=== PATIENT | female | born 1975 | race Caucasian/White ===

== ENCOUNTER 2022-07-11 08:14 | Outpatient (CLI) | payer OTHER, SELFPAY | END 2022-07-11 08:15 | disposition home or self-care (01) | LOC: NFLDREF 07-12 20:00 | PROVIDERS: PCP Physician Assistant Medical; Referring Provider Physician Assistant Medical; Visit Provider Physician Assistant Medical | DX: Z00.00 Encounter for general adult medical examination without abnormal findings (principal); E04.1 Nontoxic single thyroid nodule; Z13.0 Encounter for screening for diseases of the blood and blood-forming organs and certain disorders involving the immune mechanism; Z13.6 Encounter for screening for cardiovascular disorders; Z13.1 Encounter for screening for diabetes mellitus | CPT/HCPCS: 80053; 80061; 84443 ==

== ENCOUNTER 2022-07-14 14:48 | Outpatient (CLI) | payer OTHER, SELFPAY ==
--- NOTE | 2022-07-14 15:00 | CRLHL7_ITS ---
For Patients: As a result of the Century Cures Act, medical imaging exams and procedure reports are released immediately into your electronic medical record. You may view this report before your referring provider. If you have questions, please contact your health care provider. CLINICAL HISTORY: Bold AUB TECHNIQUE: Real time, toussaint scale images were acquired of the pelvis using a transabdominal and transvaginal approach. Color Doppler analysis was performed of the ovaries. FINDINGS: The uterus measures 9.3 x 5.9 x 5.8 centimeters. Endometrium measures 6 millimeters. Multiple fibroids are present. Largest fibroid is in the right fundal measuring 4.2 x 3.2 x 3.6 centimeters. Possible impingement on the endometrium. Right uterine fibroid measuring 2 x 0.9 x 1.8 centimeters. Left lower uterine body fibroid measuring 1.5 x 0.9 x 1.4 centimeters. Ovaries are unremarkable. Right ovary measures 3.4 x 1.6 x 1.6 centimeters. Left ovary measures 2.4 x 1.3 x 2.6 centimeters. Normal blood flow to both ovaries. IMPRESSION: 1. 6 millimeter endometrial stripe. 2. Multiple fibroids. Right fundal intramural fibroid measuring 4.2 x 3.2 x 3.6 centimeters possible impingement on the endometrium. Dictated by Lidia Brown MD @ 07/14/2022 3:59:15 PM (Electronically Signed)
== END 2022-07-14 14:49 | disposition home or self-care (01) ==
PROVIDERS: PCP Physician Assistant Medical; Visit Provider Physician Assistant Medical
DX: N92.6 Irregular menstruation, unspecified (principal); D25.1 Intramural leiomyoma of uterus
CPT/HCPCS: 76830; 76856

== ENCOUNTER 2023-07-10 09:47 | Outpatient (CLI) | payer OTHER, SELFPAY | END 2023-07-10 09:48 | disposition home or self-care (01) | PROVIDERS: PCP Physician Assistant Medical; Visit Provider Obstetrics & Gynecology | DX: N39.41 Urge incontinence (principal); N92.0 Excessive and frequent menstruation with regular cycle; R53.83 Other fatigue; Z79.899 Other long term (current) drug therapy | CPT/HCPCS: 82306; 84443; 87086 ==

== ENCOUNTER 2023-07-15 08:35 | Outpatient (CLI) | payer OTHER, SELFPAY | END 2023-07-15 08:36 | disposition home or self-care (01) | PROVIDERS: PCP Physician Assistant Medical; Visit Provider Physician Assistant Medical | DX: G43.909 Migraine, unspecified, not intractable, without status migrainosus (principal); Z13.220 Encounter for screening for lipoid disorders; M25.50 Pain in unspecified joint | CPT/HCPCS: 80053; 80061; 86039; 86140; 86200; 86431; 86618; 86812 ==

== ENCOUNTER 2023-09-02 07:57 | Outpatient (CLI) | payer OTHER, SELFPAY | END 2023-09-02 07:58 | disposition home or self-care (01) | LOC: NFLDREF 09-05 20:32 | PROVIDERS: PCP Physician Assistant Medical; Referring Provider Physician Assistant Medical; Visit Provider Physician Assistant Medical | DX: E78.5 Hyperlipidemia, unspecified (principal); F32.A Depression, unspecified | CPT/HCPCS: 80061; 82306 ==

== ENCOUNTER 2024-07-18 08:16 | Outpatient (CLI) | payer OTHER, SELFPAY ==
[2024-07-18 15:46] LABS: Chlamydia DNA Amplified* NOT DETECTED (No Detected); GC DNA Amplified* NOT DETECTED (No Detected)
[2024-07-19 23:57] LABS: HPV Source Cervix; HPV, High Risk by TMA Detected
[2024-07-20 13:19] LABS: HPV Genotype 16 by TMA Not Detected; HPV Genotype 18/45 by TMA Not Detected; HPVG Source Cervix
== END 2024-07-18 08:17 | disposition home or self-care (01) ==
PROVIDERS: PCP Physician Assistant Medical; Visit Provider Physician Assistant Medical
DX: E78.5 Hyperlipidemia, unspecified (principal); F41.9 Anxiety disorder, unspecified; F32.A Depression, unspecified; Z11.3 Encounter for screening for infections with a predominantly sexual mode of transmission; Z11.51 Encounter for screening for human papillomavirus (HPV); Z12.4 Encounter for screening for malignant neoplasm of cervix
CPT/HCPCS: 80053; 80061; 82306; 84443; 87491; 87591; 87624; 87625; 88141; 88142

== ENCOUNTER 2024-08-08 08:52 | Outpatient (CLI) | payer OTHER, SELFPAY ==
--- NOTE | 2024-08-08 10:10 | P.ANES_ITS ---
Anesthesia Charges Start Date/Time Anesthesia Start Date: 08/08/24 Anesthesia Start Time: 10:08 Stop Date/Time Anesthesia Stop Date: 08/08/24 Anesthesia Stop Time: 10:47 Coding CPT Codes CPT Codes: ANES UPR LWR GI NDSC PX - 40549 ([id number]) P1 - NORMAL HEALTHY PATIENT, QK - LUGGAGE ATTENDANT 2-4 CNCRNT ANES PROC, QX - MESSAGE BROKER DEVELOPER SVC W/ MED DIRECTION
--- NOTE | 2024-08-08 10:10 | W.ANESCHARGE ---
Anesthesia Charges Start Date/Time Anesthesia Start Date: 08/08/24 Anesthesia Start Time: 10:08 Stop Date/Time Anesthesia Stop Date: 08/08/24 Anesthesia Stop Time: 10:47 Coding CPT Codes CPT Codes: ANES UPR LWR GI NDSC PX - 15075 ([id number]) P1 - NORMAL HEALTHY PATIENT, QK - SUPERVISOR NUTRITIONAL YEAST 2-4 CNCRNT ANES PROC, QX - LUMBER PLANER SVC W/ MED DIRECTION
--- NOTE | 2024-08-08 10:48 | P.ANES_ITS ---
Anesthesia Charges Start Date/Time Anesthesia Start Date: 08/08/24 Anesthesia Start Time: 10:08 Stop Date/Time Anesthesia Stop Date: 08/08/24 Anesthesia Stop Time: 10:47 Coding CPT Codes CPT Codes: ANES UPR LWR GI NDSC PX - 05983 ([id number]) P2 - PATIENT W/MILD SYST DISEASE, QK - AFTER SCHOOL COUNSELOR 2-4 CNCRNT ANES PROC, QX - VP GENETIC SVC W/ MD MED DIRECTION
--- NOTE | 2024-08-08 10:48 | W.ANESCHARGE ---
Anesthesia Charges Start Date/Time Anesthesia Start Date: 08/08/24 Anesthesia Start Time: 10:08 Stop Date/Time Anesthesia Stop Date: 08/08/24 Anesthesia Stop Time: 10:47 Coding CPT Codes CPT Codes: ANES UPR LWR GI NDSC PX - 30341 ([id number]) P2 - PATIENT W/MILD SYST DISEASE, QK - SEMICONDUCTOR PACKAGES SEALER 2-4 CNCRNT ANES PROC, QX - DIAMOND SAW OPERATOR SVC W/ MD MED DIRECTION
== END 2024-08-08 08:53 | disposition home or self-care (01) ==
LOC: OP CLINIC 08:52
PROVIDERS: PCP Physician Assistant Medical; Visit Provider Surgery
DX: Z12.11 Encounter for screening for malignant neoplasm of colon (principal); R68.81 Early satiety
CPT/HCPCS: 00813; 43239; 45378; 88305; J2704; J3490